=== PATIENT | female | born 1985 | race Caucasian/White ===

== ENCOUNTER 2017-12-06 09:46 | Emergency (ER) | payer OTHER ==
[~2017-12-06] VITALS: Ht 149.9 cm; Wt 58.0 kg
[2017-12-06] MEDS ORDERED: IBUPROFEN 800 MG TABLET PO ONE (11:15)
[2017-12-06 12:30] VITALS: BP 126/80
== END 2017-12-06 12:39 | disposition home or self-care (01) ==
LOC: EMS 09:50
DX: L01.00 Impetigo, unspecified (principal); B02.9 Zoster without complications
CPT/HCPCS: 99283